=== PATIENT | female | born 1990 | race Caucasian/White ===

== ENCOUNTER 2017-03-03 14:44 | Emergency (ER) | payer SELFPAY ==
[~2017-03-03] VITALS: Ht 162.6 cm; Wt 55.0 kg
[2017-03-03] MEDS ORDERED: SODIUM CHLORIDE 0.9% 1,000 ML IV ONE (15:00)
[2017-03-03] MEDS ORDERED: ONDANSETRON HCL 4MG/2ML VIAL ONE (15:13)
[2017-03-03] MEDS ORDERED: ONDANSETRON HCL 4MG/2ML VIAL IV ONE (15:15)
[2017-03-03 15:25] LABS: BASOPHILS % 0.5 % (0.0-2.0); EOSINOPHILS % 1.2 % (0.0-5.0); HEMATOCRIT. 38.6 % (36.0-48.0); HEMOGLOBIN. 13.1 g/dL (12.0-16.0); LYMPHOCYTES % 29.3 % (20.0-50.0); MEAN CORPUSCULAR HEMOGLOBIN 29.5 pg (28.0-32.0); MEAN CORPUSCULAR HGB CONC 33.8 g/dL (31.0-37.0); MEAN CORPUSCULAR VOLUME 87.4 fL (81.0-99.0); MEAN PLATELET VOLUME 7.9 fl (7.4-10.4); MONOCYTES % 5.8 % (2.0-8.0); NEUTROPHILS % 63.2 % (40.0-76.0); PLATELET 334 x1000/uL (130-400); RED BLOOD CELL COUNT 4.42 mill/uL (4.2-5.4); RED CELL DISTRIBUTION WIDTH 13.1 % (11.6-14.6); WHITE BLOOD COUNT 15.2 x1000/uL (4.5-11.0)
[2017-03-03 15:42] LABS: HCG SCREEN NEGATIVE
[2017-03-03 16:40] VITALS: BP 117/66
[2017-03-03 17:36] LABS: *AMPHETAMINES SCREEN URINE NEGATIVE (NEGATIVE); *BARBITURATES SCREEN URINE NEGATIVE (NEGATIVE); *BENZODIAZEPINES SCREEN URINE NEGATIVE (NEGATIVE); *COCAINE SCREEN URINE NEGATIVE (NEGATIVE); ECSTASY MDMA SCREEN URINE NEGATIVE (NEGATIVE); METHADONE URINE SCREEN NEGATIVE (NEGATIVE); OPIATES URINE SCREEN NEGATIVE (NEGATIVE); PHENCYCLIDINE URINE SCREEN NEGATIVE (NEGATIVE)
[2017-03-03 17:46] LABS: CANNABINOID URINE SCREEN PRESUMTIVE POSITIVE (NEGATIVE)
== END 2017-03-03 18:12 | disposition home or self-care (01) ==
LOC: ER 14:56
DX: F12.10 Cannabis abuse, uncomplicated (principal); R42 Dizziness and giddiness
CPT/HCPCS: 36415; 80305; 84703; 85025; 96361; 96374; 99284; G0482; J2405; Z7610; J7030